=== PATIENT | female | born 1985 | race African-American/Black ===

== ENCOUNTER 2019-12-11 15:11 | Emergency (ER) | payer OTHER ==
[~2019-12-11] VITALS: Ht 170.2 cm; Wt 68.0 kg
--- NOTE | 2019-12-11 15:30 | NUR ---
"Pain on left side/chest started last night they did test ddimer came back high was told I need a CT" Patient a/ox4, breathing even and unlabored, no sob noted needs attended.
[2019-12-11] MEDS ORDERED: IOHEXOL-350 100 ML VIAL IV ONE (16:32)
[2019-12-11] MEDS ORDERED: CT SWABBABLE VALVE TRANS SET 1 EA INFUS.SET MC ONE (16:32)
[2019-12-11] MEDS ORDERED: IV NS 0.9% 250 ML IV ONE (16:32)
--- NOTE | 2019-12-11 16:54 | NUR ---
patient came back from CT.
--- NOTE | 2019-12-11 18:00 | NUR ---
Patient a/ox4, breathing even and unlabored, no sob noted. Needs attended. kept comfortable.
[2019-12-11 18:01] VITALS: BP 144/106
== END 2019-12-11 18:01 | disposition home or self-care (01) ==
LOC: ER 15:11
DX: M54.6 Pain in thoracic spine (principal)
CPT/HCPCS: 71275; 84703; 99284; J7050; Q9967